=== PATIENT | female | born 1975 | race African-American/Black ===

== ENCOUNTER 2019-09-17 15:24 | Emergency (ER) | payer SELFPAY ==
[~2019-09-17] VITALS: Ht 165.1 cm; Wt 84.0 kg
[2019-09-17 19:17] VITALS: BP 135/78
== END 2019-09-17 19:18 | disposition home or self-care (01) ==
LOC: ER 15:24
DX: R11.2 Nausea with vomiting, unspecified (principal); E05.90 Thyrotoxicosis, unspecified without thyrotoxic crisis or storm
CPT/HCPCS: 99283